=== PATIENT | female | born 1955 | race Caucasian/White ===

== ENCOUNTER 2016-11-07 05:17 | Day surgery (SDC) | payer BC ==
[2016-11-06 11:25] VITALS: BMI 21.9
[2016-11-07] MEDS ORDERED: MIDAZOLAM HCL 2 MG/2 ML SINGLE DOSE VIAL ONE (09:04)
[2016-11-07] MEDS ORDERED: LIDOCAINE 1%/EPI 1:100000 (50 ML MULTI DOSE VIAL) ONE (09:05)
[2016-11-07] MEDS ORDERED: BUPIVACAINE HCL/PF 0.5% (5MG/ML) 10 ML VIAL ONE (09:05)
--- NOTE | 2016-11-07 09:13 | HP ---
Satellite H - Chief Complaint Chief Complaint: left knee pain - Past Medical History Allergies/Adverse Reactions: Allergies Allergy/AdvReac Type Severity Reaction Status Date / Time latex Allergy Intermediate Rash Verified 11/06/16 11:25 - Current Medications Current Medications: Home Medications Medication Instructions Recorded Enalapril Maleate 2.5 mg PO HS 06/13/15 Insulin Aspart [Novolog Flexpen] 4 unit SQ ASDIR 06/13/15 Insulin Detemir [Levemir Flextouch] 30 unit SQ DAILY 06/13/15 Canagliflozin [Invokana] 100 mg PO DAILY 11/06/16 Oxycodone HCl/Acetaminophen 1 - 2 tab PO Q6H #50 tab MDD 8 11/07/16 [Percocet 5-325 mg Tablet -] Satellite Physical Exam - Physical Examination Vital Signs: Vital Signs Period Temp Pulse Resp BP Sys/Bermudez Pulse Ox Last 24 Hr 98.3 F 76 18 153/69 100 General Appearance: Well Nourished, Well Developed, Alert & Oriented x3 ENT: Clear Lung: Normal air movement Heart: Regular rate & rhythm Extremities: Other (left knee- + swelling, + ttp, decr rom, + mcmurrays, nvi MRI + mt) Neurological: Intact, Alert, Oriented Satellite Impression/Plan - Impression/Plan Impression: left knee internal derangement Operative Procedure: left knee arthroscopy Date to be Performed: 11/07/16
[2016-11-07] MEDS ORDERED: LIDOCAINE 1%/EPI 1:100000 (50 ML MULTI DOSE VIAL) INF ONE (09:29)
[2016-11-07] MEDS ORDERED: BUPIVACAINE HCL/PF 0.5% (5MG/ML) 10 ML VIAL IJ ONE (09:29)
[2016-11-07] MEDS ORDERED: oxyCODONE HCL 5 MG TABLET PO PRN (11:23)
[2016-11-07] MEDS ORDERED: ONDANSETRON 4 MG/2 ML VIAL IVPUSH PRN (11:23)
[2016-11-07] MEDS ORDERED: LACTATED RINGERS SOLUTION 1,000 ML IV SCH (11:30)
--- NOTE | 2016-11-07 11:48 | OP ---
Operative Note - Note: Operative Date: 11/07/16 ([facility]) Pre-Operative Diagnosis: left knee internal derangement Operation: left knee arthroscopy with PMM, PLM Post-Operative Diagnosis: Same as Pre-op Surgeon: Poli Shafer Log Handler: García Damon Anesthesiologist/MASS COMMUNICATIONS INSTRUCTOR: Sameer Tabares Anesthesia: General, Local Specimens Removed: shavings Estimated Blood Loss (mls): 5 Operative Report Dictated: Yes
[2016-11-07 15:18] VITALS: BP 150/69; PULSE 94; TEMP 98.3
--- NOTE | 2016-11-08 12:52 | OP ---
DATE OF OPERATION: 11/07/2016 PREOPERATIVE DIAGNOSIS: Internal derangement, left knee. POSTOPERATIVE DIAGNOSIS: Internal derangement, left knee. PROCEDURE: Arthroscopy, left knee; partial medial and lateral meniscectomy. SURGICAL ATTENDING: Poli Shafer MD GENERAL CAR YARD SUPERVISOR: García Damon MD ANESTHESIA: General with LMA. CLOSURE: Nylon 4-0. COMPLICATIONS: None. CONDITION: To recovery room in stable condition. DESCRIPTION OF OPERATIVE PROCEDURE: Patient taken to the operating room on November 07, 2016. General anesthesia with LMA was administered by the anesthesiologist. IV Kefzol administered prophylactically prior to the case. Left lower extremity was prepped and draped in the usual sterile fashion. Superolateral, medial lateral, and infrapatellar portal sites were infiltrated with 1% Xylocaine with epinephrine. Superolateral portal was made with 15 blade followed by a blunt trocar. The knee was aspirated and inflated with a cocktail of 10 mL of 1% Xylocaine, 10 mL of 0.5% Marcaine, and 20 mL of arthroscopic saline. Medial lateral and infrapatellar portals were then made with 15 blade followed by a blunt trocar. Scope was placed in the lateral infrapatellar portal and up into the suprapatellar pouch. Pouch was visualized to be clean. The medial and lateral gutters were visualized to be clean. The undersurface of the patella and trochlea had some mild changes but was otherwise left in situ. With valgus stress on the knee, the medial compartment was entered. The medial meniscus was found to have a complex tear of its posterior horn. It also had diffuse white fibrinous calcification throughout the meniscus. The meniscus was smoothened down to smooth and stable meniscal tissue using a meniscal biter and arthroscopic shaver. There were also punctate calcifications throughout the medial femoral condyle and some in the medial tibial plateau with some chondromalacia as well, but otherwise this was left in situ as well. At 90 degrees, the ACL was visualized and probed to be intact but with calcifications. Some surface calcifications were debrided using the shaver. With figure-4 position, the lateral compartment was entered. The lateral meniscus had a small flap tear in its midportion. This was debrided back to smooth and stable meniscal tissue using a meniscal biter and arthroscopic shaver. Rest of the meniscus was intact with only very small speckling of deposits. The lateral femoral condyle and lateral tibial plateau were found to be intact. The knee was irrigated with copious amounts of irrigation. The portals were closed with 4-0 nylon. Prior to closure, 20 mL 0.5% Marcaine was infused into the knee for postoperative analgesia. Sterile pressure dressing was placed over the knee. Patient awakened from anesthesia and transferred to recovery in stable condition. No complications. Estimated blood loss: Negligible. Bob [id number]
--- NOTE | 2016-11-08 16:12 | PATH ---
Surgical Pathology Report Patient Name: GABBY MATA [facility]. Rec. #: [id number] /Age/Gender: 1955 (Age: 61) / F Account: [id number] Location: [facility] SURGICAL Taken: 11/07/2016 Received: 11/07/2016 Reported: 11/08/2016 Physicians: Bob Mckeon M.D. 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 Electronically Signed Augustus Smith M.D. Gross Description Received in formalin, labeled "left knee shavings" is a 4.0 x 2.8 x 0.3 cm aggregate of duron-yellow soft tissue fragments. A brand representative portion is submitted in one cassette. 11/07/201611/07/2016
== END 2016-11-07 13:10 | disposition home or self-care (01) ==
LOC: JASU-SURG 05:17
PROVIDERS: ATTEND Orthopaedic Surgery
PROC: 0SBD4ZZ Excision of Left Knee Joint, Percutaneous Endoscopic Approach (ICD-10-PCS; 2016-11-07)
PROC: 0SBD4ZZ Excision of Left Knee Joint, Percutaneous Endoscopic Approach (ICD-10-PCS; principal; 2016-11-07 09:00)
DX: S83.232A Complex tear of medial meniscus, current injury, left knee, initial encounter (principal); X58.XXXA Exposure to other specified factors, initial encounter; Y93.9 Activity, unspecified; Y92.9 Unspecified place or not applicable; Y99.9 Unspecified external cause status
CPT/HCPCS: 88304-TC; 94760; 97116-GP

== ENCOUNTER 2023-08-19 06:06 | Day surgery (SDC) | payer BC ==
[2023-08-15 11:06] VITALS: BMI 18.9
[2023-08-19] MEDS ORDERED: VANCOMYCIN 1,000 MG VIAL (RESTRICTED TO ID ONLY) ONE (07:09)
[2023-08-19] MEDS ORDERED: ACETAMINOPHEN 325 MG TABLET (FP) PO PRN (07:18)
[2023-08-19] MEDS ORDERED: ONDANSETRON 4 MG/2 ML VIAL IVPUSH PRN (07:18)
[2023-08-19] MEDS ORDERED: BUPIVACAINE HCL/PF 0.5% (5MG/ML) 10 ML VIAL ONE (07:30)
[2023-08-19] MEDS ORDERED: ACETAMINOPHEN INJECTION 100 ML IVPB ONE (07:30)
[2023-08-19] MEDS ORDERED: MIDAZOLAM HCL 2 MG/2 ML SINGLE DOSE VIAL ONE ×2 (07:30→09:35)
[2023-08-19] MEDS ORDERED: BUPIVACAINE LIPOSOME/PF (EXPAREL) 266 MG/20 ML VIAL ONE (07:30)
[2023-08-19] MEDS ORDERED: PROPOFOL 20 ML ONE ×2 (08:17→09:49)
[2023-08-19] MEDS ORDERED: TRANEXAMIC ACID 1000 MG/10 ML VIAL ONE (08:38)
[2023-08-19] MEDS ORDERED: KETOROLAC TROMETHAMINE 30 MG/1 ML VIAL ONE (08:38)
[2023-08-19] MEDS ORDERED: ceFAZolin SODIUM 1 GM VIAL ONE (08:38)
[2023-08-19] MEDS ORDERED: BUPIVICAINE 0.25%/MORPH PF/KETOROLAC - 51ML DISP.SYRINGE IA ONE (09:41)
[2023-08-19] MEDS: VANCOMYCIN 1,000 MG VIAL (RESTRICTED TO ID ONLY) IVPB ONE ×2 (09:54)
[2023-08-19] MEDS: BUPIVICAINE 0.25%/MORPH PF/KETOROLAC - 51ML DISP.SYRINGE IA ONE ×2 (10:06)
[2023-08-19] MEDS ORDERED: MAG HYDROX/AL HYDROX/SIMETH 30 ML UNIT-DOSE CUP PO PRN (10:50)
[2023-08-19] MEDS: GABAPENTIN 300 MG CAPSULE PO ONE (12:26)
[2023-08-19] MEDS: CELECOXIB 200 MG CAPSULE PO ONE (12:27)
[2023-08-19] MEDS: CEFAZOLIN 1 GM/D5W 1 GM/50 ML BAG IVPB ONE (12:27)
[2023-08-19] MEDS: LACTATED RINGERS SOLUTION 1,000 ML IV SCH ×2 (12:27)
[2023-08-19] MEDS: oxyCODONE HCL 5 MG TABLET PO PRN (13:30)
[2023-08-19] MEDS: CEFAZOLIN 1 GM in SODIUM CHLORIDE 50 ML IVPB SCH (16:55)
[2023-08-19] MEDS: INSULIN ASPART SLIDING SCALE (NOVOLOG) 1 VIAL SQ SCH (16:55)
[2023-08-19] MEDS: ONDANSETRON 4 MG/2 ML VIAL IVPUSH PRN (17:52)
[2023-08-19] MEDS: SENNOSIDES/DOCUSATE COMBO (SENNA PLUS) TABLET (UD) PO SCH (21:15)
[2023-08-19] MEDS: GABAPENTIN 300 MG CAPSULE PO SCH (21:15)
[2023-08-19 22:33] VITALS: RESP 18
[2023-08-20] MEDS: oxyCODONE HCL 5 MG TABLET PO PRN (03:31)
[2023-08-20 06:24] VITALS: BP 147/47; PULSE 81; TEMP 98.2
[2023-08-20] MEDS ORDERED: INSULIN ASPART SLIDING SCALE (NOVOLOG) 1 VIAL SQ ONE (06:27)
[2023-08-20 08:41] LABS: HEMATOCRIT 28.5 % (32.4-45.2); HEMOGLOBIN 9.1 G/dL (10.7-15.3); MCH 29.4 pg (25.7-33.7); MEAN CELL VOLUME 91.8 fl (80-96); MEAN PLT VOLUME 8.6 fl (7.5-11.1); PLATELET COUNT 273.9 10^3/uL (134-434); RDW 14.4 % (11.6-15.6); WHITE BLOOD COUNT 6.1 10^3/uL (4.0-10.8)
[2023-08-20 09:26] LABS: CALCIUM 9.2 mg/dl (8.5-10.1); CREATININE 1.1 mg/dl (0.6-1.3); POTASSIUM 4.6 mmol/L (3.5-5.1)
[2023-08-20] MEDS: LISINOPRIL 20 MG TABLET PO SCH (09:35)
[2023-08-20] MEDS: MULTIVITAMINS (DAILY MVI) TABLET (FP) PO SCH (09:36)
[2023-08-20] MEDS: PANTOPRAZOLE 40 MG TABLET PO SCH (09:36)
[2023-08-20] MEDS: ASPIRIN COATED 81 MG TABLET.EC PO SCH (09:36)
[2023-08-20] MEDS: sitaGLIPtin PHOSPHATE 50 MG TABLET PO SCH (09:37)
[2023-08-20] MEDS: amLODIPine BESYLATE 5 MG TABLET (FP) PO SCH (09:37)
[2023-08-20] MEDS ORDERED: INSULIN (LEVEMIR) 100 UNITS/ML UNITS SQ PRN (10:00)
== END 2023-08-20 15:00 | disposition home or self-care (01) ==
LOC: SUATTDRO 06:06 → FASUSAT 06:06 → FM/S 11:58 → FASUSAT 08-20 15:00
PROVIDERS: ATTEND Internal Medicine
PROC: 8E0Y0CZ Robotic Assisted Procedure of Lower Extremity, Open Approach (ICD-10-PCS; 2023-08-19)
PROC: 0SRD0J9 Replacement of Left Knee Joint with Synthetic Substitute, Cemented, Open Approach (ICD-10-PCS; principal; 2023-08-19 08:45)
DX: M17.12 Unilateral primary osteoarthritis, left knee (principal)
CPT/HCPCS: 20985; 27447; C1776; S2900; 36415; 73560-TC-LT-FY; 80048; 82962; 85027; 88305-TC; 88311-TC; 94760; 97010-GP; 97116-GP; 97162-GP; C1889; J0131

== ENCOUNTER 2023-12-24 05:44 | Day surgery (SDC) | payer BC ==
[2023-12-18 16:03] VITALS: BMI 18.7
[2023-12-24] MEDS ORDERED: LACTATED RINGERS SOLUTION 1,000 ML IV SCH (07:15)
[2023-12-24] MEDS ORDERED: DEXAMETHASONE SOD PHOSPHATE 4 MG/1 ML VIAL ONE (07:23)
[2023-12-24] MEDS ORDERED: PROPOFOL 20 ML ONE (07:23)
[2023-12-24] MEDS ORDERED: SUCCINYLCHOLINE CHLORIDE 200 MG/10 ML SYRINGE ONE (07:24)
[2023-12-24] MEDS ORDERED: MIDAZOLAM HCL 2 MG/2 ML SINGLE DOSE VIAL ONE (07:24)
[2023-12-24] MEDS: ACETAMINOPHEN 325 MG TABLET (FP) PO PRN (07:54)
[2023-12-24] MEDS ORDERED: ACETAMINOPHEN 325 MG TABLET (FP) ONE (07:56)
[2023-12-24] MEDS ORDERED: FENTANYL CITRATE/PF 50 MCG/ML VIAL ONE ×2 (07:56→08:05)
[2023-12-24] MEDS ORDERED: ONDANSETRON 4 MG/2 ML VIAL ONE (08:06)
[2023-12-24] MEDS: ONDANSETRON 4 MG/2 ML VIAL IVPUSH PRN (08:10)
[2023-12-24] MEDS ORDERED: oxyCODONE HCL 5 MG TABLET ONE (09:03)
[2023-12-24] MEDS: oxyCODONE HCL 5 MG TABLET PO PRN (09:05)
[2023-12-24 09:33] VITALS: RESP 19; TEMP 97.4
[2023-12-24 09:40] VITALS: BP 140/60; PULSE 70
== END 2023-12-24 09:35 | disposition home or self-care (01) ==
LOC: FASU 05:44
PROVIDERS: ATTEND Orthopaedic Surgery Sports Medicine
PROC: 0SSCXZZ Reposition Right Knee Joint, External Approach (ICD-10-PCS; principal; 2023-12-24 07:38)
DX: M24.661 Ankylosis, right knee (principal)
CPT/HCPCS: 82962; 94760